=== PATIENT | male | born 1985 | race Two or more races ===

== ENCOUNTER 2017-11-25 08:21 | Emergency (ER) | payer SELFPAY ==
[2017-11-25 08:46] LABS: BILIRUBIN,URINE NEGATIVE (NEG); CLARITY,URINE CLEAR; COLOR,URINE YELLOW; GLUCOSE,URINE NEGATIVE (NEG); NITRITE,URINE NEGATIVE (NEG); PROTEIN,URINE NEGATIVE (NEG-TRACE); UROBILINOGEN,URINE 0.2 mg/dL (0.2 mg/dL)
[2017-11-25 08:55] LABS: BACTERIA,URINE FEW /HPF (0-FEW); RBC,URINE OCC /HPF (0-2); SQUAMOUS EPITHELIAL CELL,UR OCC /LPF
[2017-11-25] MEDS ORDERED: LIDOCAINE 1% PF 2 ML VIAL. (10:05)
[2017-11-25] MEDS: AZITHROMYCIN 250 MG TABLET. PO (10:14)
[2017-11-25] MEDS: cefTRIAXone IM 250 MG VIAL IM (10:18)
== END 2017-11-25 10:45 | disposition home or self-care (01) ==
LOC: ER 08:21
DX: R30.0 Dysuria (principal)
CPT/HCPCS: 81001; 87491; 87591; 96372; 99284; J0696; Q0144